=== PATIENT | female | born 1980 | race Caucasian/White ===

== ENCOUNTER 2020-08-19 07:48 | Emergency (ER) | payer OTHER ==
[~2020-08-19] VITALS: Ht 171.4 cm; Wt 80.6 kg
[~2020-08-19 07:48] MED LIST: OXYC1TAB14 PO
--- NOTE | 2020-08-19 08:07 | NUR ---
THIS IS A 40 YO F W/ C/O RLQ ABD PAIN STARTING THIS MORNING. PT DENIES N/V. DENIES MEDICAL HX. VSS, NADN. PT AMBULATORY TO THE BR W/ A STEADY GAIT TO ATTEMPT URINE SAMPLE.
--- NOTE | 2020-08-19 08:19 | NUR ---
URINE COLLECTED AND SENT TO LAB. PIV STARTED, LABS DRAWN.
[2020-08-19] MEDS ORDERED: MORPHINE SULFATE 4 MG/ML, 1ML ONE (08:23)
[2020-08-19] MEDS ORDERED: ONDANSETRON 2MG/ML, 2ML ONE (08:23)
[2020-08-19 08:30] LABS: BASOPHILS % (AUTO) 2 % (0-1); EOSINOPHILS % (AUTO) 1 % (1-7); LYMPHOCYTES % (AUTO) 19 % (22-44); MEAN CORPUSCULAR HEMOGLOBIN 29.8 pg (27.0-34.8); MEAN CORPUSCULAR HGB CONC 33.9 g/dL (32.4-35.8); MEAN PLATELET VOLUME 8.1 fL (7.4-10.4); MONOCYTES % (AUTO) 6 % (2-9); NEUTROPHILS % (AUTO) 73 % (42-75); PLATELET COUNT 283 x10^3/uL (130-400); RED BLOOD COUNT 4.98 x10^6/uL (3.82-5.3); RED CELL DISTRIBUTION WIDTH 13.3 % (9.6-15.2)
[2020-08-19] MEDS ORDERED: MORPHINE SULFATE 4 MG/ML, 1ML IVPush PRN (08:30)
--- NOTE | 2020-08-19 08:30 | NUR ---
PT MEDICATED PER EMAR. SIDE RAILS UPX2, CALL LIGHT IN REACH AND FAMILY AT BEDSIDE. AWAITING CT.
[2020-08-19 08:34] LABS: ALANINE AMINOTRANSFERASE 24 U/L (12-78); ALBUMIN 3.8 g/dL (3.4-5.0); ANION GAP 5 mmol/L (5-15); CALCIUM 9.5 mg/dL (8.5-10.1); CHLORIDE 109 mmol/L (98-107); CREATININE 0.87 mg/dL (0.55-1.02)
[2020-08-19 08:38] LABS: ALKALINE PHOSPHATASE 53 U/L (45-117); BILIRUBIN,TOTAL 0.5 mg/dL (0.2-1.0); TOTAL PROTEIN 8.2 g/dL (6.4-8.2)
[2020-08-19 08:47] LABS: MICROSCOPIC INDICATED
[2020-08-19] MEDS ORDERED: ONDANSETRON 2MG/ML, 2ML IVPush ONE (09:00)
[2020-08-19] MEDS ORDERED: SODIUM CHLORIDE 0.9% 1,000ML IVBOLUS ONE (09:00)
--- NOTE | 2020-08-19 09:26 | NUR ---
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
--- NOTE | 2020-08-19 09:32 | NUR ---
PT RETURNED FROM CT W/O INCIDENT.
--- NOTE | 2020-08-19 09:57 | NUR ---
ALL TESTS RESULTED. PT IS UP FOR RECHECK AT THIS TIME. VSS, DENISEN.
[2020-08-19 10:38] VITALS: BP 136/86
--- NOTE | 2020-08-19 10:59 | NUR ---
Patient given discharge instructions and they have confirmed that they understand the instructions. Patient ambulatory with steady gait.
[2020-08-19] MEDS ORDERED: OMNIPAQUE 350 MG/ML, 100ML BOTTLE ONE (11:38)
== END 2020-08-19 11:00 | disposition home or self-care (01) ==
LOC: ED 10:45
DX: R10.31 Right lower quadrant pain (principal)
CPT/HCPCS: 36415; 74177; 80053; 81001; 83690; 84703; 85025; 87086; 96361; 96374; 96375; 99285; J2270; J2405; J7030; Q9967